=== PATIENT | female | born 1965 | race Caucasian/White ===

== ENCOUNTER 2017-06-14 11:50 | Emergency (ER) | payer BC ==
[2017-06-14 12:06] VITALS: BP 122/88
--- NOTE | 2017-06-14 12:42 | UC ---
Eye Complaint HPI - HPI Summary HPI Summary: "i think I have pink eye" c/o bilateral eye redness and drainage upon waking for 3 days. wears contacts. has redness in right eye day 1 after sleeping in contacts and now its in both eyes with crusting in the am . no visual loss or eye pain. no FB sensation . no trauma. no vision loss [ End ] - History of Current Complaint Chief Complaint: UCEye Stated Complaint: BILATERAL EYE COMPLAINT Time Seen by Provider: 06/14/17 12:33 Hx Obtained From: Patient Hx Last Menstrual Period: 10/19/14 Onset/Duration: Sudden Onset Severity Initially: Moderate Aggravating Factor(s): Nothing, Contact Lens Alleviating Factor(s): Nothing Associated Signs And Symptoms: Positive: Drainage (Purulent) - Allergies/Home Medications Allergies/Adverse Reactions: Allergies Allergy/AdvReac Type Severity Reaction Status Date / Time No Known Allergies Allergy Verified 06/14/17 12:05 Home Medications: Home Medications FLUoxetine CAP* [Prozac CAP*] 40 mg PO DAILY 06/14/17 [History Confirmed ] clonazePAM TAB(*) [Klonopin TAB(*)] 1 mg PO BEDTIME 06/14/17 [History Confirmed 06/14/17] lamoTRIgine TAB(*) [Lamictal TAB(*)] 200 mg PO BID 06/14/17 [History Confirmed 06/14/17] PMH/Surg Hx/FS Hx/Imm Hx Previously Healthy: Yes Psychological History: Anxiety, Depression - Surgical History Surgical History: None - Social History Occupation: Employed Full-time - principal Alcohol Use: Weekly Substance Use Type: None Smoking Status (MU): Never Smoked Tobacco Review of Systems Constitutional: Negative Skin: Negative Eyes: Drainage, Eye Redness ENT: Negative Respiratory: Negative Cardiovascular: Negative Gastrointestinal: Negative Genitourinary: Negative Motor: Negative Neurovascular: Negative Musculoskeletal: Negative Neurological: Negative Psychological: Negative All Other Systems Reviewed And Are Negative: Yes Physical Exam Triage Information Reviewed: Yes Appearance: Well-Appearing, No Pain Distress, Well-Nourished Vital Signs: Initial Vital Signs Temp 98.3 F 06/14/17 12:01 Pulse 70 06/14/17 12:01 Resp 16 06/14/17 12:01 BP 122/88 06/14/17 12:01 Pulse Ox 100 06/14/17 12:01 Vital Signs Reviewed: Yes Eye Exam: Normal Eyes: Positive: Conjunctiva Inflamed, Discharge, Other: - injection b/l eyes ENT Exam: Normal Dental Exam: Normal Neck exam: Normal Respiratory Exam: Normal Cardiovascular Exam: Normal Eye Complaint Course/Dx - Course Course Of Treatment: avoid contacts for 7 days - Differential Dx/Diagnosis Differential Diagnosis/HQI/PQRI: Conjunctivitis Provider Diagnoses: conjunctivitis Discharge - Discharge Plan Condition: Good Disposition: HOME Prescriptions: Ofloxacin 0.3%(Ophth)(Nf) [Ocuflox OPTH 0.3%(NF)] 1 drop BOTH EYES Q4H #1 btl Patient Education Materials: Conjunctivitis (ED) Referrals: No Primary Care Phys,NOPCP [Primary Care Provider] - 3 Days (if needed ) Additional Instructions: No contact lenses for 1 week.
== END 2017-06-14 12:50 | disposition home or self-care (01) ==
LOC: UCCORT 11:50
DX: H10.33 Unspecified acute conjunctivitis, bilateral (principal); F41.9 Anxiety disorder, unspecified; F32.9 Major depressive disorder, single episode, unspecified
CPT/HCPCS: 99212; G0463

== ENCOUNTER 2019-06-20 11:37 | Emergency (ER) | payer BC ==
[2019-06-20 11:51] VITALS: BP 135/76
--- NOTE | 2019-06-20 12:21 | UC ---
UC General HPI - HPI Summary HPI Summary: PER TRIAGE, c/o R sided upper back pain that is on/off and started approx 3 hrs ago while sitting in a pedicure chair getting a pedicure. certain movements and taking a deep breath make the pain worse. Denies coughing, fever, any trauma or injury to that area in her back. Denies any neck pain or stiffness. PT DENIES CP, SOB, DIAPHORESIS AND EXERTIONAL COMPONENTS. RELIEF WITH BEING STILL AND OCCURS WITH MOVEMENTS. - History of Current Complaint Chief Complaint: UCBackPain Stated Complaint: RT SIDE BACK PAIN Time Seen by Provider: 06/20/19 11:52 Hx Obtained From: Patient Hx Last Menstrual Period: 10/19/14 Pain Intensity: 9 - Allergy/Home Medications Allergies/Adverse Reactions: Allergies Allergy/AdvReac Type Severity Reaction Status Date / Time No Known Allergies Allergy Verified 06/20/19 11:52 Home Medications: Home Medications Calcium Carbonate/Vitamin D3 [Calcium 600 + Vit D Tablet] 1 each PO BID [History Confirmed 06/20/19] hydrOXYzine HCL TAB* [Atarax 25 MG TAB*] 25 mg PO BEDTIME PRN 06/20/19 [History Confirmed 06/20/19] PMH/Surg Hx/FS Hx/Imm Hx Psychological History: Bipolar Disorder - Surgical History Surgical History: None - Family History Known Family History: Positive: Non-Contributory - Social History Alcohol Use: Daily Substance Use Type: None Smoking Status (MU): Never Smoked Tobacco Review of Systems All Other Systems Reviewed And Are Negative: Yes Constitutional: Negative: Fever, Chills Skin: Negative: Rash Respiratory: Negative: Shortness Of Breath, Cough Cardiovascular: Negative: Palpitations, Chest Pain Musculoskeletal: Negative: Decreased ROM Neurological: Negative: Weakness, Paresthesia, Numbness Physical Exam Triage Information Reviewed: Yes Appearance: Well-Appearing Vital Signs: Initial Vital Signs Temp 98.7 F 06/20/19 11:44 Pulse 60 06/20/19 11:44 Resp 14 06/20/19 11:44 BP 135/76 06/20/19 11:44 Pulse Ox 100 06/20/19 11:44 Vital Signs Reviewed: Yes Eyes: Positive: Conjunctiva Clear ENT: Positive: Normal ENT inspection Neck: Positive: Supple, Nontender, No Lymphadenopathy Respiratory: Positive: Lungs clear, Normal breath sounds, No respiratory distress Cardiovascular: Positive: RRR, No Murmur, Pulses Normal - BUE's Abdomen Description: Positive: Nontender Musculoskeletal: Positive: ROM Intact, No Edema, Other: - no calf tenderness or cords. Neck/Back: without deformity or rash. spine non tender. ROM intact throughout; however, twisting and turning of neck and truck reproduces her pain in the R medial scapular border area which is also tender. Neurological: Positive: Alert Psychological: Positive: Age Appropriate Behavior Skin Exam: Normal Skin: Negative: Rashes Course/Dx - Differential Dx - Multi-Symptom Differential Diagnoses: Other - no concern for fx, cardiopulmonary pathology/PE , dissection. - Diagnoses Provider Diagnosis: Trapezius muscle spasm Discharge - Sign-Out/Discharge Documenting (check all that apply): Patient Departure All imaging exams completed and their final reports reviewed: No Studies - Discharge Plan Condition: Stable Disposition: HOME Prescriptions: Cyclobenzaprine TAB* [Flexeril 10 MG TAB*] 10 mg PO TID PRN #10 tab PRN Reason: Spasms - Muscle Naproxen [Naprosyn 500 mg tab] 500 mg PO BID 7 Days #14 tablet Patient Education Materials: Muscle Spasm (ED) Referrals: Ariel Thurman MD [Medical Doctor] - As Soon As Possible Additional Instructions: GO TO THE ER FOR ANY CHANGES OR WORSENING. - Billing Disposition and Condition Condition: STABLE Disposition: Home
== END 2019-06-20 12:27 | disposition home or self-care (01) ==
LOC: UCCORT 11:37
DX: M62.830 Muscle spasm of back (principal)
CPT/HCPCS: 99212; G0463